=== PATIENT | female | born 1955 | race Caucasian/White ===

== ENCOUNTER 2021-06-23 12:29 | Outpatient (CLI) | payer MEDICARE, SELFPAY ==
--- NOTE | ~2021-06-23 | US_ITS ---
EXAMINATION: US pelvic complete w TV EXAM DATE: 06/23/2021 13:23 INDICATION: N95.0 - Postmenopausal bleeding . TECHNIQUE: Pelvic transabdominal and transvaginal sonogram was performed. There are multiple graysca le and Doppler images available for interpretation. There is no prior study for comparison. FINDINGS: Uterus measures 7.0 x 4.5 x 5.0 cm, and is morphologically normal. Endometrium measures 1. 3 cm, moderately thickened for postmenopausal status. Some small cystic spaces identified. Right adnexa: The ovary is not identified. There is no adnexal mass. Left adnexa: The ovary is not identified. There is no adnexal mass. IMPRESSION: Thickened endometrium with differential diagnosis including cancer and hyperplasia. Consi sandra histologic correlation. Reviewed, dictated and finalized at location B. SWARE FINISHER IMPRESSION: Thickened endometrium with differential diagnosis including cancer and hyperplasia. Consider histologic correlation.
== END 2021-06-23 12:30 | disposition home or self-care (01) ==
LOC: ANHIMG 12:33
PROVIDERS: PCP Family Medicine; Visit Provider Student in an Organized Health Care Education/Training Program
DX: N95.0 Postmenopausal bleeding (principal); R93.89 Abnormal findings on diagnostic imaging of other specified body structures
CPT/HCPCS: 76830; 76856

== ENCOUNTER 2021-10-11 15:07 | Outpatient (CLI) | payer MEDICARE, SELFPAY ==
[2021-10-11 15:40] LABS: Anion Gap 6 mmol/L (8-16); Blood Urea Nitrogen 17 mg/dL (7-17); Calcium 9.1 mg/dL (8.4-10.2); Carbon Dioxide 29 mmol/L (22-30); Chloride 102 mmol/L (98-107); Estimated Glomerular Filt Rate > 60; Glucose 169 mg/dL (65-110); Potassium 4.1 mmol/L (3.4-5.0); Sodium 137 mmol/L (137-145)
[2021-10-11 15:44] LABS: INR 2.7; Prothrombin Time 27.8 Seconds (11.1-14.7)
[2021-10-11 15:45] LABS: Partial Thromboplastin Time 46.1 SECONDS (22.3-36.8)
== END 2021-10-11 15:08 | disposition home or self-care (01) ==
LOC: ANHSURGERY 15:13
PROVIDERS: Anesthesiology; PCP Family Medicine; Visit Provider Student in an Organized Health Care Education/Training Program
DX: Z01.818 Encounter for other preprocedural examination (principal); E11.9 Type 2 diabetes mellitus without complications; Z79.01 Long term (current) use of anticoagulants
CPT/HCPCS: 36415; 80048; 85610; 85730

== ENCOUNTER 2021-10-14 00:47 | Day surgery (SDC) | payer MEDICARE, SELFPAY ==
[2021-10-04 11:37] VITALS: BMI 53.9
--- NOTE | 2021-10-04 11:44 | PC.NURSE ---
Addendum entered by Sophia García RN 10/04/21 15:40: PT INSTRUCTED TO TAKE LEVOTHYROXINE, VENLAFAXINE AM OF SURGERY AND TRAMADOL IF NEEDED - UNDERSTANDING VOICED Original Note: Report to the Outpatient Waiting Room, entrance under the green pavilion located off [facility], at time ___0930____ on date __10/14/21 . OR Time: . - You and your visitor will be asked a series of questions to screen for COVID 19 for your protection. - A mask is required within the hospital. Preoperative COVID Testing Requirements: NONE No COVID Test needed if: (proof is required; if not received patient will have Rapid Test prior to entry) - Patient has received COVID Vaccine at least 14 days prior to procedure date or - Patient has positive COVID test result within last 90 days of surgery date. COVID Test needed if above criteria is not met If not COVID vaccinated a COVID test must be conducted within 72 hours of surgery and patient is asked to isolate self from time of testing until procedure. You will go to the [facility] for your COVID testing. The [facility] site is located at the corner of [address] [facility]. You will only be called if COVID results are positive and your surgeon may reschedule your elective surgery date. Patients may have clear liquids (water, carbonated beverages, clear teas, apple juice) until 3 hours prior to surgery (0830 AM) with a maximum of 20 ounces. - No food from midnight until time of surgery - Infants may have breast milk until 4 hours before surgery, formula 6 hours prior to surgery. - Children will be allowed to drink immediately following surgery. If applicable, please bring a bottle or sippy cup to assist with drinking. Juice, water, soda, and popsicles are readily available. For infants on formula, please bring formula the day of surgery. Pacifiers are allowed. Take the following medications with a SIP of water the morning of surgery: Medications to discontinue ___WARFARIN PER DR. ARMENDARIZ'S INSTRUCTIONS, ALL VITAMINS AND PROBIOTIC 3 DAYS PRIOR TO SURGERY PER ANESTHESIA, Date to take last dose__10/10/21__ Please no make-up, nail yi, hairspray, perfume, deodorant, or body powder the day of surgery. No jewelry (including any body piercings) or valuables the day of surgery, leave them at home. Please take a shower or bath the night before, or the morning of, surgery with an antibacterial soap. Wear comfortable, loose fitting clothing. Children are encouraged to wear pajamas. - Jewelry must be removed prior to entering the operating room. Rings and piercings that are not removed may be cut off. - The hospital will not accept responsibility for valuables. - Please leave all valuables, including medications, at home the day of surgery. If you are going home after surgery, a licensed team otr truck driver must drive you home. - NO public transportation without another adult. - We recommend that an adult stay with you for 24 hours following discharge. - We also recommend that you do not drive, make important decision, drink alcoholic beverages, or take any drugs that were not prescribed by your health care provider for at least 24 hours after your discharge time. For Pediatric surgeries, we recommend two adults accompany the child home (only one inside the building at this time). One visitor will be allowed to accompany the patient into the hospital. Patients visitor will be instructed to remain with patient at all times or leave the building. We will allow the visitor to come back to the postoperative area when patient is ready. Follow any additional instructions given to you from your surgeon. Telephone instructions given to ___PT and asked if any additional questions and then verbalized understanding. Patient advised to call surgeon office or pre surgery nurse liaison [phone] if any additional questions.
--- NOTE | 2021-10-13 13:59 | WPDANESEPPF ---
Anes - Initial Pre Proc Eval Procedure: Operation Date: 10/14/21 11:30 Proposed Procedures p Hysteroscopy, Dilation and Curettage, Possible Myosure - Medina Childers MD <Giovanny Oliveros MD - Last Filed: 11/02/21 14:24> Date/Time: 10/13/21 13:59 <Giovanny Oliveros MD - Last Filed: 11/02/21 14:24> Surgeon: Medina Childers MD <Giovanny Oliveros MD - Last Filed: 11/02/21 14:24> Pre Op Diagnosis: Post Menopausal Bleeding <Giovanny Oliveros MD - Last Filed: 11/02/21 14:24> Patient Data Age: 65 Gender: F Height: 1.7 m Weight: 156.36 kg <Giovanny Oliveros MD - Last Filed: 11/02/21 14:24> Allergies Allergy/AdvReac Type Severity Reaction Status Date / Time No Known Allergies Allergy Verified 10/14/21 10:26 <Giovanny Oliveros MD - Last Filed: 11/02/21 14:24> Home Medications Medication Instructions Recorded Confirmed Type dulaglutide 4.5 mg/0.5 mL 4.5 mg SUBCUT WEEKLY 06/16/21 10/14/21 History subcutaneous pen injector insulin glargine 100 unit/mL (3 46 unit SUBCUT HS 06/16/21 10/14/21 History mL) subcutaneous pen levothyroxine 125 mcg capsule 125 mcg PO DAILY 06/16/21 10/14/21 History lisinopril 20 mg tablet 20 mg PO QAM 06/16/21 10/14/21 History metformin 500 mg tablet 250 mg PO BID 06/16/21 10/14/21 History metoprolol succinate 50 mg 50 mg PO HS 06/16/21 10/14/21 History tablet,extended release 24 hr multivitamin 1 tablet PO DAILY 06/16/21 10/14/21 History tramadol 50 mg tablet 50 mg PO Q6H PRN 06/16/21 10/14/21 History venlafaxine 150 mg tablet,extended 150 mg PO DAILY 06/16/21 10/14/21 History release 24 hr cephalexin 500 mg capsule 500 mg PO Q6H 09/20/21 10/14/21 History doxycycline hyclate 100 mg capsule 100 mg PO BID cap 09/20/21 10/14/21 History Probiotic 1 tab-cap DAILY 10/04/21 10/14/21 History magnesium 250 mg PO DAILY 10/04/21 10/14/21 History warfarin 5 mg HS 10/04/21 10/14/21 History <Giovanny Oliveros MD - Last Filed: 11/02/21 14:24> Patient hx anesthesia problems: none <Davidson Ahumada MD - Last Filed: 10/14/21 10:46> Family hx anesthesia problems: none <Davidson Ahumada MD - Last Filed: 10/14/21 10:46> Results Review: All pre-operative results and documents have been reviewed as part of the pre-operative evaluation. <Giovanny Oliveros MD - Last Filed: 11/02/21 14:24> [facility] Past Medical History Medical History: Medical History Anxiety Arthritis Broken arm Diabetes History of blood clots Hypertension Hypothyroidism Irritable bowel syndrome Sleep apnea with use of continuous positive airway pressure (CPAP) <Giovanny Oliveros MD - Last Filed: 11/02/21 14:24> Surgical History Surgical History: Surgical History H/O hernia repair H/O neck surgery History of carpal tunnel release History of cholecystectomy History of knee replacement History of lateral meniscus repair of left knee History of medial meniscus repair of left knee History of oophorectomy Aladdin teeth removed <Giovanny Oliveros MD - Last Filed: 11/02/21 14:24> Family History Family History: Family History Mother Lung cancer Grandparent Hypertension <Giovanny Oliveros MD - Last Filed: 11/02/21 14:24> Social History Social History: Social History Smoking status: Never smoker Second hand tobacco smoke exposure: No Alcohol intake: current Alcohol use details: VERY RARE MAYBE 1 DRINK/YEAR Substance use: never Substance use type: does not use Spiritual care concerns: No <Giovanny Oliveros MD - Last Filed: 11/02/21 14:24> Anes - Eval Final PreProcedure Day of Procedure 10/13/21 13:59 <Giovanny Oliveros MD - Last Filed: 11/02/21 14:24> Patient weight: super morbidl
--- NOTE | 2021-10-13 17:01 | PM.IMHP ---
H&P: HPI History of Present Illness Date/Time: 10/13/21 17:01 Patient is a 65 yo woman who presented to gynecology office with complaints of postmenopausal bleeding. Patient reported initially light vaginal bleeding that became heavier in and 2020. She is on anticoagulation and states that bleeding subsided after she discontinued Warfarin. She reported a few additional episodes of breakthrough bleeding afterwards prior to presenting to web applications architect office. A pelvic US was performed as well as an in office EMB. EMB showed a benign endometrial polyp. Although benign polyp noted, given the amount of bleeding patient reported as well as the thickened ES of 1.3cm, recommend proceeding with hysteroscopy/D&C to obtain greater sample of tissue as well as possibly completely remove polyp. In general, patient doing well today. Chief Complaint: Postmenopausal bleeding Thickened endometrium Endometrial polyp Review of Systems Review of Systems: All systems reviewed & are unremarkable except as noted in HPI and below Constitutional: Constitutional: Reports as per HPI, Reports no additional constitutional complaints, Denies chills, Denies fever(s), Denies headache(s) and Denies night sweats Eyes: Eyes: Reports as per HPI and Reports no additional eye complaints ENT: Reports system reviewed and no additional complaints, except as documented, Reports as per HPI, Reports Normal hearing present and Denies headache(s) Cardiovascular: Cardiovascular: Reports as per HPI, Reports no additional cardiovascular complaints, Denies chest pain and Denies dyspnea Respiratory: Respiratory: Reports as per HPI, Reports no additional respiratory complaints, Denies cough and Denies dyspnea Gastrointestinal: Gastrointestinal: Reports as per HPI, Reports no additional gastrointestinal complaints, Denies abdominal pain, Denies change in bowel habits, Denies change in stool character, Denies nausea and Denies vomiting Genitourinary: Genitourinary: Reports no additional female genitourinary complaints, Reports as per HPI, Denies abnormal vaginal bleeding, Denies genital lesions, Denies hot flashes, Denies dyspareunia, Denies pelvic pain, Denies sexual dysfunction, Denies urinary incontinence, Denies vaginal discharge, Denies vaginal dryness and Denies vaginal odor Musculoskeletal: Musculoskeletal: Reports no additional musculoskeletal complaints and Reports as per HPI Integumentary/Breasts: Skin/Breast: Reports system reviewed and no additional complaints, except as docu, Reports as per HPI, Denies breast pain and Denies nipple discharge Neurologic: Reports system reviewed and no additional complaints, except as documented, Reports as per HPI, Reports Normal hearing present and Denies headache(s) Psychiatric: Psychiatric: Reports no additional psychiatric complaints, Reports as per HPI, Denies anxiety and Denies depression Endocrine: Endocrine: Reports no additional endocrine complaints and Reports as per HPI Hematologic/Lymphatic: Hematologic/Lymphatic: Reports no additional hematologic/lymphatic complaints and Reports as per HPI Allergic/Immunologic: Allergic/Immunologic: Reports no additional allergic/immunologic complaints and Reports as per HPI PMFSH Past Medical History Medical History Anxiety Arthritis Broken arm Diabetes History of blood clots Hypertension Hypothyroidism Irritable bowel syndrome Sleep apnea with use of continuous positive airway pressure (CPAP) Surgical History Surgical History H/O hernia repair H/O neck surgery History of carpal tunnel release History of cholecystectomy History of knee replacement History of lateral meniscus repair of left knee History of medial meniscus repair of left knee History of oophorectomy [place] teeth removed Family History Family History Mother Lung cancer G
[2021-10-14 09:38] VITALS: BP 145/78; PULSE 100; RESP 18; TEMP 37.1; O2SAT 98
[2021-10-14] MEDS: LACTATED RINGERS 1,000 ML 30 ML IV CONT (10:10)
[2021-10-14] MEDS: ACETAMINOPHEN 500 MG TABLET 1000 MG PO (10:12)
[2021-10-14 10:16] LABS: Glucose Point of Care 194 mg/dl (65-105)
--- NOTE | 2021-10-14 10:52 | WPDHPUPDATE1 ---
History and Physical Update Update Date/Time: 10/14/21 10:52 History and Physical has been reviewed, including an updated exam of the patient. There are NO changes in the patient's condition. Risks, benefits, and alternatives have been discussed and questions answered. Patient agrees to proceed with procedure.
[2021-10-14 12:06] VITALS: BP 113/70; PULSE 106; RESP 16; O2SAT 100
--- NOTE | 2021-10-14 12:11 | P.OP_ITS ---
Procedure Note - Detailed Date of Procedure 10/14/21 Pre-op Diagnosis Post Menopausal Bleeding Endometrial polyp Post-op Diagnosis Same Procedure Performed Hysteroscopy, dilation and curettage Surgeon Medina Childers MD Anesthesia MAC Findings Normal appearing endometrial cavity, bilateral tubal ostia seen, small to medium sized polyp visualized just at internal cervical os near lower uterine segment Description of Procedure The patient was taken to the operating room where she self-transferred to the operating room table. Patient was placed in the dorsal supine position. Anesthesia was administered and found to be adequate. The patient was repositioned in the dorsal lithotomy position with the use of Ankit stirrups. She was prepped and draped in the usual sterile fashion. A red rubber catheter was used to drain the bladder of 75 cc of concentrated urine. A bivalve speculum was inserted into the vagina. The cervix was visualized and the anterior lip of the cervix was grasped with a single-tooth tenaculum. A paracervical block with 1% plain lidocaine was performed. 5 cc of lidocaine was administered on either side. The cervix was serially dilated to accommodate a hysteroscope. The hysteroscope was advanced into the endometrial cavity. Upon entry, a small to medium sized polyp was visualized near internal cervical os and lower uterine segment. The remainder of the endometrial cavity appeared grossly normal, pale, and atrophic. Bilateral tubal ostia were visualized. A few pictures were taken. The hysteroscope was removed. A medium sized rigid curette was then introduced into the endometrial cavity. All quadrants of the uterus we re explored and a minimal amount of tissue was obtained, including what appeared to be fragments of the visualized polyp. Hysteroscope was reintroduced. Polyp was no longer visualized. A few additional pictures were taken. Hysteroscope was removed. The specimen was prepared to be sent to pathology for analysis. The tenaculum was removed. No bleeding was noted from tenaculum puncture sites. The vagina was cleansed and dried. The speculum was removed. The remainder of the patient was also cleansed and dried. She was taken out of the dorsal lithotomy position and awakened from anesthesia without difficulty. She was transferred to the recovery room in stable condition. All sponge, lap, instrument counts were correct at end of the procedure. Estimated Blood Loss 2 IV Fluids 800 Urine Output 75 Drains No Packing No Pathology Yes (endometrial curettings) Complications No immediate complications Condition Stable Disposition Same day
[2021-10-14 12:35] VITALS: BP 129/76; PULSE 101; RESP 16
[2021-10-14] MEDS: oxyCODONE HCL (*CRX) 5 MG TAB IR PO (12:59)
[2021-10-14 13:08] VITALS: BP 125/84; PULSE 101; RESP 16
[2021-10-14 13:28] LABS: Glucose Point of Care 119 mg/dl (65-105)
[2021-10-14 13:30] VITALS: BP 125/72; PULSE 98; RESP 16
== END 2021-10-14 13:35 | disposition home or self-care (01) ==
PROVIDERS: PCP Family Medicine; Visit Provider Student in an Organized Health Care Education/Training Program
PROC: 0U5B8ZZ Destruction of Endometrium, Via Natural or Artificial Opening Endoscopic (ICD-10-PCS; CPT 58563; principal; 2021-10-14 11:30)
DX: N95.0 Postmenopausal bleeding (principal); N84.0 Polyp of corpus uteri; E11.9 Type 2 diabetes mellitus without complications; I10 Essential (primary) hypertension; E03.9 Hypothyroidism, unspecified; G47.33 Obstructive sleep apnea (adult) (pediatric); F41.9 Anxiety disorder, unspecified; K58.9 Irritable bowel syndrome, unspecified; Z79.4 Long term (current) use of insulin; Z79.84 Long term (current) use of oral hypoglycemic drugs; Z79.899 Other long term (current) drug therapy
CPT/HCPCS: 58558; 36415; 80048; 82948; 85610; 85730; 88305; A9270; J1100; J2250; J2405; J2704; J3010; J7030; J7120

== ENCOUNTER → 2023-07-04 15:03 | Outpatient (CLI) | payer MEDICARE, SELFPAY ==
--- NOTE | ~2023-07-04 | US_ITS ---
EXAMINATION: US pelvic complete w TV DATE: 07/04/2023 15:35 INDICATION: Postmenopausal bleeding. Large clots. Comparison:Ultrasound dated 06/23/2021 TECHNIQUE: Multiple transabdominal and endovaginal sonographic images of the pelvis performed. FINDINGS: The uterus measures 7.6 x 3.1 x 3.4 cm. The endometrial complex measures 1.9 cm. The ovaries are surgically absent. There is no free fluid in the pelvis. There are no abnormal masses seen on either side. IMPRESSION: 1. Thickened endomtrial complex. The differential diagnosis includes endometrial hyperplasia, polyp a nd carcinoma. Biopsy is recommended. Reviewed, dictated and finalized at location L. AGE COLLECTOR IMPRESSION: 1. Thickened endomtrial complex. The differential diagnosis includes endometria l hyperplasia, polyp and carcinoma. Biopsy is recommended.
== END ==
PROVIDERS: PCP Obstetrics & Gynecology; Visit Provider Obstetrics & Gynecology
DX: N95.0 Postmenopausal bleeding (principal); R93.89 Abnormal findings on diagnostic imaging of other specified body structures
CPT/HCPCS: 76830; 76856